=== PATIENT | male | born 1940 | race African-American/Black ===

== ENCOUNTER 2024-11-14 14:34 | Inpatient (IN) | payer MEDICARE ==
[~2024-11-14] VITALS: Ht 170.2 cm; Wt 73.5 kg
[2024-11-14] MEDS: IV NS 0.9% 1,000 ML BAG IV ONE (15:31)
[2024-11-14 16:03] LABS: BASOPHILS % (AUTO) 0.2 % (0.0-2.0); EOSINOPHILS # (AUTO) 0.1 K/uL (0.0-0.7); EOSINOPHILS % (AUTO) 1.4 % (0.0-6.0); HEMATOCRIT 38 % (39-51); HEMOGLOBIN 12.2 g/dL (13.5-17.5); LYMPHOCYTES # (AUTO) 1.4 K/uL (0.8-4.8); LYMPHOCYTES % (AUTO) 13.3 % (20.0-44.0); MEAN CORPUSCULAR HEMOGLOBIN 28 PG (26.0-33.0); MEAN CORPUSCULAR HGB CONC 32 g/dl (31.0-36.0); MEAN CORPUSCULAR VOLUME 87 fL (80-96); MONOCYTES % (AUTO) 9.4 % (2.0-12.0); NEUTROPHILS # (AUTO) 7.8 K/uL (1.8-8.9); NEUTROPHILS % (AUTO) 75.7 % (43.0-81.0); PLATELET COUNT (AUTO) 192 K/uL (150-450); RED BLOOD CELL COUNT(AUTO) 4.33 MIL/uL (4.5-6.0); RED CELL DISTRIBUTION WIDTH 16.6 % (11.5-15.0); WHITE BLOOD COUNT (AUTO) 10.3 K/uL (4.3-11.0)
[2024-11-14 16:19] LABS: INR 1.12 (0.91-1.10); PARTIAL THROMBOPLASTIN TIME 29.7 SEC (24.3-34.3); PROTHROMBIN TIME 11.8 SECS (9.2-11.1)
[2024-11-14 16:23] LABS: ALANINE AMINOTRANSFERASE 16 U/L (12-78); ALBUMIN 2.7 g/dL (3.4-5.0); ALKALINE PHOSPHATASE 104 U/L (46-116); ASPARTATE AMINOTRANSFERASE 30 U/L (15-37); BILIRUBIN,DIRECT 0.1 mg/dL (0.0-0.2); BILIRUBIN,TOTAL 0.4 mg/dL (0.2-1.0); CALCIUM, SERUM 8.8 mg/dL (8.5-10.1); CARBON DIOXIDE 26 mmol/L (21-32); CHLORIDE 103 mmol/L (98-107); CREATININE 1.3 mg/dL (0.6-1.3); GLUCOSE 114 mg/dL (74-106); POTASSIUM 4.7 mmol/L (3.5-5.1); SODIUM SERUM 138 mmol/L (136-145); TOTAL PROTEIN, SERUM 9.4 g/dL (6.4-8.2); UREA NITROGEN, BLOOD 24 mg/dL (7-18)
[2024-11-14 16:29] LABS: LACTIC ACID 1.1 mmol/L (0.4-2.0)
[2024-11-14] MEDS ORDERED: Z GUARD REMEDY 4 OZ OINT TP PRN (17:00)
[2024-11-14] MEDS ORDERED: ONDANSETRON HCL/PF 4 MG/2 ML VIAL IVP PRN (17:00)
[2024-11-14 18:52] LABS: APPEARANCE,URINE CLEAR (CLEAR); BILIRUBIN,URINE NEGATIVE (NEGATIVE); BLOOD, URINE NEGATIVE Ery/uL (NEGATIVE); COLOR,URINE YELLOW (YELLOW); KETONES,URINE NEGATIVE (NEGATIVE); LEUKOCYTE ESTERASE ,URINE NEGATIVE (NEGATIVE); NITRITE, URINE NEGATIVE (NEGATIVE); PROTEIN,URINE TRACE mg/dl (NEGATIVE); UGLUCOSE NEGATIVE (NEGATIVE); UROBILINOGEN,URINE 0.2 EU/dL (0.2)
[2024-11-14] MEDS: ENOXAPARIN SODIUM 40 MG/0.4 ML DISP.SYRIN SQ SCH (19:30)
[2024-11-14 20:00] VITALS: BP 151/79; TEMP 98.1; O2SAT 97
[2024-11-14] MEDS: IV NS 0.9% 1,000 ML IV PRN (20:15)
[2024-11-14 21:14] LABS: ADD URINE CULTURE NO; BACTERIA,URINE Rare /HPF (None Seen); RBC,URINE NONE SEEN /HPF (0-2); SQUAMOUS EPITHELIAL CELL,UR Rare /HPF (None Seen); WBC,URINE 0-2 /HPF (0-3)
[2024-11-14 23:23] VITALS: BP 151/79; TEMP 98.1; O2SAT 97
[2024-11-15 06:01] LABS: BASOPHILS % (AUTO) 0.2 % (0.0-2.0); EOSINOPHILS # (AUTO) 0.3 K/uL (0.0-0.7); EOSINOPHILS % (AUTO) 2.7 % (0.0-6.0); HEMATOCRIT 35 % (39-51); LYMPHOCYTES # (AUTO) 1.5 K/uL (0.8-4.8); LYMPHOCYTES % (AUTO) 15.2 % (20.0-44.0); MEAN CORPUSCULAR HEMOGLOBIN 28 PG (26.0-33.0); MEAN CORPUSCULAR HGB CONC 32 g/dl (31.0-36.0); MEAN CORPUSCULAR VOLUME 87 fL (80-96); NEUTROPHILS # (AUTO) 6.8 K/uL (1.8-8.9); NEUTROPHILS % (AUTO) 70.9 % (43.0-81.0); PLATELET COUNT (AUTO) 179 K/uL (150-450); RED BLOOD CELL COUNT(AUTO) 3.97 MIL/uL (4.5-6.0); RED CELL DISTRIBUTION WIDTH 16.5 % (11.5-15.0); WHITE BLOOD COUNT (AUTO) 9.6 K/uL (4.3-11.0)
[2024-11-15 06:13] LABS: MAGNESIUM 2.2 mg/dL (1.8-2.4); PHOSPHORUS 2.8 mg/dL (2.5-4.9); POTASSIUM 4.4 mmol/L (3.5-5.1)
[2024-11-15] MEDS: PANTOPRAZOLE 40 MG TABLET.DR PO SCH (07:28)
[2024-11-15 08:00] VITALS: BP 152/83; TEMP 100.8; O2SAT 96
[2024-11-15] MEDS ORDERED: ASPI-1169 PO (10:18)
[2024-11-15] MEDS ORDERED: LEVOFLOXACIN 500 MG /D5W 100ML 500 MG in PREMIX 1 EA IV SCH (10:30)
[2024-11-15 11:01] LABS: THYROID STIMULATING HORMONE 2.13 uIU/mL (0.358-3.74)
[2024-11-15] MEDS: LEVOFLOXACIN (250MG) 250 MG TABLET PO SCH (11:38)
[2024-11-15] MEDS: ACETAMINOPHEN 325 MG TABLET PO PRN (11:42)
[2024-11-15 16:00] VITALS: BP 125/64; TEMP 100.8; O2SAT 92
[2024-11-15 20:30] VITALS: BP 128/70; TEMP 99.7; O2SAT 100
[2024-11-16 07:30] LABS: BASOPHILS % (AUTO) 0.2 % (0.0-2.0); EOSINOPHILS # (AUTO) 0.1 K/uL (0.0-0.7); EOSINOPHILS % (AUTO) 1.4 % (0.0-6.0); HEMATOCRIT 33 % (39-51); HEMOGLOBIN 10.9 g/dL (13.5-17.5); LYMPHOCYTES # (AUTO) 1.1 K/uL (0.8-4.8); LYMPHOCYTES % (AUTO) 10.7 % (20.0-44.0); MEAN CORPUSCULAR HEMOGLOBIN 28 PG (26.0-33.0); MEAN CORPUSCULAR HGB CONC 33 g/dl (31.0-36.0); MEAN CORPUSCULAR VOLUME 87 fL (80-96); MONOCYTES # (AUTO) 1.1 K/uL (0.1-1.30); NEUTROPHILS # (AUTO) 7.7 K/uL (1.8-8.9); NEUTROPHILS % (AUTO) 76.7 % (43.0-81.0); PLATELET COUNT (AUTO) 173 K/uL (150-450); RED BLOOD CELL COUNT(AUTO) 3.85 MIL/uL (4.5-6.0); RED CELL DISTRIBUTION WIDTH 16.3 % (11.5-15.0)
[2024-11-16 07:32] LABS: CALCIUM, SERUM 8.8 mg/dL (8.5-10.1); CREATININE 1.1 mg/dL (0.6-1.3); POTASSIUM 4.1 mmol/L (3.5-5.1)
[2024-11-16 08:11] LABS: FOLIC ACID 10.5 ng/mL (>3.0)
[2024-11-16 16:00] VITALS: BP 157/82; TEMP 99.9; O2SAT 95
[2024-11-16 20:00] VITALS: BP 149/79; TEMP 102.6; O2SAT 96
[2024-11-16 22:00] VITALS: TEMP 99.3
[2024-11-17 07:00] VITALS: BP 150/82; TEMP 98.4; O2SAT 95
[2024-11-17] MEDS: ASPIRIN 81 MG TAB.CHEW PO SCH (08:35)
[2024-11-17] MEDS ORDERED: PANT40TA49 PO (09:59)
[2024-11-17] MEDS ORDERED: LEVO250T59 PO (09:59)
[2024-11-17] MEDS ORDERED: ENOX40DI SQ (09:59)
[2024-11-17] MEDS: CLONIDINE HCL 0.1 MG TABLET PO ONE (12:49)
[2024-11-17 16:00] VITALS: BP 127/72; TEMP 100.8; O2SAT 94
[2024-11-17 20:00] VITALS: BP 137/79; TEMP 98.6; O2SAT 100
[2024-11-18 08:43] VITALS: BP 146/98; TEMP 98.1; O2SAT 98
[2024-11-18] MEDS: POLYETHYLENE GLYCOL 3350 17 GM POWD.PACK PO SCH (13:17)
[2024-11-18 16:37] VITALS: BP 121/62; TEMP 98.4; O2SAT 97
[2024-11-18 20:07] LABS: VITAMIN B1 THIAMINE,WB 91.7 nmol/L (66.5-200.0)
== END 2024-11-18 18:55 | DRG 178 ==
LOC: ER 14:40 → MED 17:49
PROVIDERS: ADMIT Nurse Practitioner Acute Care; ATTEND Nurse Practitioner Acute Care
DX: J15.69 Pneumonia due to other Gram-negative bacteria (principal); E44.0 Moderate protein-calorie malnutrition; G93.40 Encephalopathy, unspecified; R26.89 Other abnormalities of gait and mobility; E86.0 Dehydration; R29.6 Repeated falls; D64.9 Anemia, unspecified; E78.5 Hyperlipidemia, unspecified; E88.09 Other disorders of plasma-protein metabolism, not elsewhere classified; I10 Essential (primary) hypertension; Z90.49 Acquired absence of other specified parts of digestive tract; Z88.0 Allergy status to penicillin; K64.4 Residual hemorrhoidal skin tags; R53.1 Weakness; Z68.25 Body mass index [BMI] 25.0-25.9, adult; K64.8 Other hemorrhoids
CPT/HCPCS: 36415; 70450-TC; 71045-TC; 80048-TC; 80076-TC; 81001; 82550-TC; 82607-TC; 82962-TC; 83605-TC; 83690-TC; 83735-TC; 83921; 84100-TC; 84425; 84443-TC; 84484-TC; 85025-TC; 85730-TC; 87040-TC; 97110-TC; 97116-TC; 97530-TC; A4223; G0378; J1650; J7030

== ENCOUNTER 2025-04-28 11:56 | Inpatient (IN) | payer MEDICARE, OTHER ==
[~2025-04-28] VITALS: Ht 170.2 cm; Wt 64.2 kg
[~2025-04-28 11:56] MED LIST: ASPI-1169 PO; ENOX40DI SQ; LEVO250T59 PO; PANT40TA49 PO
[2025-04-28 12:52] LABS: PLATELET COUNT (AUTO) 226 K/uL (150-450); RED BLOOD CELL COUNT(AUTO) 4.44 MIL/uL (4.5-6.0); RED CELL DISTRIBUTION WIDTH 15.6 % (11.5-15.0); WHITE BLOOD COUNT (AUTO) 8.4 K/uL (4.3-11.0)
[2025-04-28 13:28] LABS: CALCIUM, SERUM 9.5 mg/dL (8.5-10.1); CREATININE 0.8 mg/dL (0.6-1.3); SODIUM SERUM 134 mmol/L (136-145); UREA NITROGEN, BLOOD 9 mg/dL (7-18)
[2025-04-28] MEDS ORDERED: LEVO250T59 PO (13:44)
[2025-04-28] MEDS ORDERED: LEVOFLOXACIN (250MG) 250 MG TABLET ONE (14:22)
[2025-04-28] MEDS: LEVOFLOXACIN (250MG) 250 MG TABLET PO ONE (14:27)
[2025-04-28] MEDS ORDERED: IPRA3AMP23 IH (15:12)
[2025-04-28] MEDS ORDERED: DONE5TAB34 PO (15:12)
[2025-04-28] MEDS ORDERED: MAGN400O6 PO (15:12)
[2025-04-28] MEDS ORDERED: HYDR-4303 PO (15:12)
[2025-04-28] MEDS ORDERED: MULT-594 PO (15:12)
[2025-04-28] MEDS ORDERED: PROP15DR EACHEYE (15:12)
[2025-04-28] MEDS ORDERED: CHOL100043 PO (15:12)
[2025-04-28] MEDS ORDERED: ACET-868 PO (15:12)
[2025-04-28] MEDS ORDERED: AMLO10TA4 PO (15:12)
[2025-04-28] MEDS ORDERED: ASCO-352 PO (15:12)
[2025-04-28] MEDS ORDERED: ONDA4TAB5 PO (15:12)
[2025-04-28] MEDS ORDERED: LORA-259 PO (15:12)
[2025-04-28] MEDS ORDERED: BISA10SU11 RC (15:12)
[2025-04-28] MEDS ORDERED: PANT40TA2 PO (15:12)
[2025-04-28] MEDS: ENOXAPARIN SODIUM 40 MG/0.4 ML DISP.SYRIN SQ SCH (15:30)
[2025-04-28] MEDS ORDERED: Z GUARD REMEDY 4 OZ OINT TP PRN (15:30)
[2025-04-28] MEDS ORDERED: ONDANSETRON HCL/PF 4 MG/2 ML VIAL IVP PRN (15:30)
[2025-04-28] MEDS ORDERED: BISACODYL SUPP (10 MG) 10 MG/SUPP.RECT SUPP.RECT RC PRN (16:30)
[2025-04-28] MEDS ORDERED: IPRATROPIUM NEB FS 0.5 MG/2.5 ML AMPUL.NEB NEB PRN (16:30)
[2025-04-28] MEDS ORDERED: ALBUTEROL FS 2.5 MG/3 ML VIAL.NEB NEB PRN (16:30)
[2025-04-28 16:48] LABS: ASPARTATE AMINOTRANSFERASE 19.0 U/L (15-37); TOTAL PROTEIN, SERUM 8.5 g/dL (6.4-8.2)
[2025-04-28] MEDS ORDERED: POLYVINYL ALCOHOL 15 ML BOTTLE EACHEYE PRN (19:00)
[2025-04-28] MEDS ORDERED: IV NS 0.9% 250 ML IV ONE (20:16)
[2025-04-28] MEDS ORDERED: IOHEXOL-300 100 ML VIAL IV ONE (20:16)
[2025-04-28 22:00] VITALS: BP 127/74; TEMP 97.7; O2SAT 97
[2025-04-29] VITALS: BP 135/68; TEMP 98.2; O2SAT 97
[2025-04-29] MEDS: LORAZEPAM 1 MG TABLET PO PRN (02:50)
[2025-04-29 04:00] VITALS: BP 134/82; TEMP 97.2; O2SAT 98
[2025-04-29] MEDS: PANTOPRAZOLE 40 MG TABLET.DR PO SCH (08:20)
[2025-04-29] MEDS: ASPIRIN 81 MG TAB.CHEW PO SCH (08:35)
[2025-04-29] MEDS: ASCORBIC ACID 500 MG TABLET PO SCH (08:35)
[2025-04-29] MEDS: MULTIVITAMINS,THERAGRAN 1 UDTAB TABLET PO SCH (08:35)
[2025-04-29] MEDS: CHOLECALCIFEROL 1,000 UNIT TABLET (VIT D3) PO SCH (08:35)
[2025-04-29] MEDS: DONEPEZIL 5 MG TABLET PO SCH (08:35)
[2025-04-29 09:00] VITALS: BP 134/82; TEMP 97.2; O2SAT 98
[2025-04-29 11:13] LABS: PLATELET COUNT (AUTO) 229 K/uL (150-450); RED BLOOD CELL COUNT(AUTO) 4.30 MIL/uL (4.5-6.0); RED CELL DISTRIBUTION WIDTH 15.0 % (11.5-15.0); WHITE BLOOD COUNT (AUTO) 8.2 K/uL (4.3-11.0)
[2025-04-29 11:29] LABS: CALCIUM, SERUM 9.5 mg/dL (8.5-10.1); CREATININE 0.8 mg/dL (0.6-1.3); PHOSPHORUS 2.8 mg/dL (2.5-4.9); SODIUM SERUM 138.0 mmol/L (136-145); UREA NITROGEN, BLOOD 11.0 mg/dL (7-18)
[2025-04-29 12:00] VITALS: BP 120/76; TEMP 98.1; O2SAT 96
[2025-04-29] MEDS: LEVOFLOXACIN (250MG) 250 MG TABLET PO SCH (15:37)
[2025-04-29 16:00] VITALS: BP 123/71; TEMP 98; O2SAT 97
[2025-04-29 20:00] VITALS: BP 114/70; TEMP 99; O2SAT 98
[2025-04-30] MEDS: MAGNESIUM OXIDE 400 MG TABLET PO STA (00:25)
[2025-04-30 04:00] VITALS: BP 129/71; TEMP 98.2; O2SAT 99
[2025-04-30 12:10] LABS: PLATELET COUNT (AUTO) 209 K/uL (150-450); RED BLOOD CELL COUNT(AUTO) 4.01 MIL/uL (4.5-6.0); RED CELL DISTRIBUTION WIDTH 15.2 % (11.5-15.0); WHITE BLOOD COUNT (AUTO) 7.3 K/uL (4.3-11.0)
[2025-04-30 12:22] LABS: CALCIUM, SERUM 9.2 mg/dL (8.5-10.1); CREATININE 0.8 mg/dL (0.6-1.3); PHOSPHORUS 2.6 mg/dL (2.5-4.9); SODIUM SERUM 133.0 mmol/L (136-145); UREA NITROGEN, BLOOD 15.0 mg/dL (7-18)
[2025-04-30 16:00] VITALS: BP 148/93; TEMP 98.1; O2SAT 96
[2025-04-30 20:00] VITALS: BP 132/77; TEMP 98.2; O2SAT 99
[2025-05-01 04:00] VITALS: BP 123/75; TEMP 98.5; O2SAT 98
[2025-05-01 08:00] VITALS: BP 130/76; TEMP 98.2; O2SAT 97
[2025-05-01 16:00] VITALS: BP 124/76; TEMP 97.7; O2SAT 98
[2025-05-01] MEDS: ACETAMINOPHEN 325 MG TABLET PO PRN (21:10)
[2025-05-02 08:00] VITALS: BP 122/74; TEMP 98; O2SAT 96
[2025-05-02] MEDS: HYDROCODONE/APAP 5/325MG TABLET PO PRN (09:10)
[2025-05-02 16:00] VITALS: BP 118/69; TEMP 98; O2SAT 96
[2025-05-02 23:33] VITALS: BP 121/65; TEMP 97.9; O2SAT 96
[2025-05-03 04:00] VITALS: BP 119/66; TEMP 98.8; O2SAT 96
[2025-05-03 08:00] VITALS: BP 129/74; TEMP 98.2; O2SAT 99
[2025-05-03 16:00] VITALS: BP 135/82; TEMP 98.2; O2SAT 99
[2025-05-03 20:00] VITALS: BP 125/52; TEMP 99.1; O2SAT 97
[2025-05-04 04:00] VITALS: BP 135/58; TEMP 98.9; O2SAT 96
[2025-05-04 07:07] LABS: FOLIC ACID > 20.0 ng/mL (>3.0)
[2025-05-04 12:00] VITALS: BP 124/62; TEMP 98.4; O2SAT 97
[2025-05-04 20:00] VITALS: BP 134/60; TEMP 98.6; O2SAT 99
[2025-05-05 04:00] VITALS: BP 124/80; TEMP 98.8
[2025-05-05 12:00] VITALS: BP 130/75; TEMP 98; O2SAT 97
[2025-05-05 16:00] VITALS: BP 131/75; TEMP 98.3; O2SAT 99
[2025-05-05 20:44] VITALS: BP 128/70; TEMP 98.8; O2SAT 97
[2025-05-06 04:29] VITALS: BP 131/65; TEMP 99.1; O2SAT 97
[2025-05-06 08:00] VITALS: BP 135/72; TEMP 97.8; O2SAT 98
[2025-05-06 11:07] LABS: METHYLMALONIC ACID 452 nmol/L (0-378)
[2025-05-06 16:00] VITALS: BP 117/66; TEMP 97.9; O2SAT 98
[2025-05-06 20:16] VITALS: BP 125/67; TEMP 98; O2SAT 100
[2025-05-07 04:00] VITALS: BP 122/70; TEMP 98; O2SAT 100
[2025-05-07 08:00] VITALS: BP 132/69; TEMP 97.9; O2SAT 99
[2025-05-07] MEDS: ENSURE ENLIVE 237 ML LIQUID (VANILLA) PO SCH (08:14)
[2025-05-07 16:00] VITALS: BP 122/64; TEMP 98.1; O2SAT 97
[2025-05-07 20:00] VITALS: BP 153/93; TEMP 98.1; O2SAT 99
[2025-05-08 04:00] VITALS: BP 130/87; TEMP 97.9; O2SAT 99
[2025-05-08 08:00] VITALS: BP 140/88; TEMP 97.5; O2SAT 98
[2025-05-08 16:00] VITALS: BP 132/80; TEMP 97.8; O2SAT 98
[2025-05-08 20:00] VITALS: BP 112/69; TEMP 99; O2SAT 97
[2025-05-09 03:07] LABS: VITAMIN B1 THIAMINE,WB 107.1 nmol/L (66.5-200.0)
[2025-05-09 04:00] VITALS: BP 131/74; TEMP 98.5; O2SAT 98
[2025-05-09 07:29] LABS: PLATELET COUNT (AUTO) 199 K/uL (150-450); RED BLOOD CELL COUNT(AUTO) 3.86 MIL/uL (4.5-6.0); RED CELL DISTRIBUTION WIDTH 15.5 % (11.5-15.0); WHITE BLOOD COUNT (AUTO) 8.6 K/uL (4.3-11.0)
[2025-05-09 08:00] VITALS: BP 146/79; TEMP 98.1; O2SAT 98
[2025-05-09 08:23] LABS: CALCIUM, SERUM 9.1 mg/dL (8.5-10.1); CREATININE 0.8 mg/dL (0.6-1.3); SODIUM SERUM 134.0 mmol/L (136-145); UREA NITROGEN, BLOOD 18.0 mg/dL (7-18)
== END 2025-05-09 15:44 | DRG 193 ==
LOC: ER 12:05 → TELE1 14:21 → MEDSG1 04-29 19:51
PROVIDERS: ADMIT Nurse Practitioner Family
DX: J15.9 Unspecified bacterial pneumonia (principal); G93.41 Metabolic encephalopathy; E87.1 Hypo-osmolality and hyponatremia; D64.9 Anemia, unspecified; I25.10 Atherosclerotic heart disease of native coronary artery without angina pectoris; E78.5 Hyperlipidemia, unspecified; Z88.0 Allergy status to penicillin; Z79.82 Long term (current) use of aspirin; M19.90 Unspecified osteoarthritis, unspecified site; K21.9 Gastro-esophageal reflux disease without esophagitis; Z95.5 Presence of coronary angioplasty implant and graft; I10 Essential (primary) hypertension; F03.90 Unspecified dementia, unspecified severity, without behavioral disturbance, psychotic disturbance, mood disturbance, and anxiety; R10.9 Unspecified abdominal pain; R07.9 Chest pain, unspecified; R53.1 Weakness; K59.00 Constipation, unspecified; Y24.9XXS Unspecified firearm discharge, undetermined intent, sequela
CPT/HCPCS: 36415; 71045-TC; 71260-TC; 80048-TC; 80076-TC; 82607-TC; 83605-TC; 83690-TC; 83735-TC; 83921; 84100-TC; 84425; 84443-TC; 84484-TC; 85025-TC; 87040-TC; 93307-TC; 97110-TC; 97530-TC; 97535-TC; A6213; G0378; J1650; J7050; Q9967